=== PATIENT | female | born 1960 | race Caucasian/White ===

== ENCOUNTER 2020-06-14 02:44 | Observation (INO) | payer BC, OTHER ==
[2020-06-14] MEDS ORDERED: hydrALAZINE 25 MG TAB ONE (03:46)
--- NOTE | 2020-06-14 04:17 | PDOC.HHP ---
Hospitalist HPI - History of Present Illness Chest pain History of Present Illness: 59-year-old woman with a history of hypertension and GERD presented to [facility] with a complaint of chest pain of onset 4 days ago. Also the patient the chest pain got worse last night, rated a pain around 8/10 in severity. Chest pain located in the left anterior chest radiating into her shoulder and her arm, associated shortness of breath. According to the patient the chest pain occurred at rest. Initial troponin was negative. EKG demonstrated sinus rhythm with nonspecific ST-T changes. Chest x-ray unremarkable. Patient's cardiac risk factors include smoking, hypertension and family history. She was also severely hypertensive with systolic blood pressure up to 247. She was given sublingual nitroglycerin and aspirin which were patient partially relieved the pain. She was then placed on transdermal nitro which helped improve her blood pressure. Patient is admitted for further management. Hospitalist ROS - Review of Systems Other: Except as documented, all other systems reviewed and negative. - Medication Medications: Amlodipine 10 mg daily Atenolol 25 mg daily Prilosec 40 mg daily Celexa 20 mg daily Requip 0.5 mg daily. Hospitalist History - Past Medical History Cardiac: reports: HTN Gastrointestinal: reports: GERD Psych: reports: Depression - Past Surgical History Past Surgical History: reports: Breast Biopsy, Tubal Ligation - Family History Family History: reports: cardiac disorder (Mother had triple bypass surgery) - Social History Smoking Status: Current every day smoker (Half a pack a day) Alcohol: reports: None Drugs: reports: none - Exam General Appearance: NAD, awake alert Eye: PERRL, anicteric sclera ENT: normocephalic atraumatic, no oropharyngeal lesions, moist mucosa Neck: supple, symmetric, no JVD, no thyromegaly Heart: RRR, no murmur, no gallops, no rubs Respiratory: CTAB, no wheezes, no rales, no ronchi, normal chest expansion Gastrointestinal: soft, non-tender, non-distended, normal bowel sounds Extremities: no cyanosis, no edema Skin: normal turgor, no rashes Neurological: cranial nerve grossly intact, no weakness, no focal deficits Musculoskeletal: normal tone, normal strength Psychiatric: normal affect, normal behavior, A&O x 3 Hospitalist Results - Labs Lab results: Hemoglobin 14.1, platelet 183, WBC 8.7. Sodium 143, potassium 3.8 chloride 105 bicarb 26 BUN 20 creatinine 0.94. Initial troponin is negative. - Radiology Interpretation Chest x-ray Status: report reviewed by me (No acute disease) Hospitalist H&P A/P - Problem (1) Chest pain Code(s): R07.9 - CHEST PAIN, UNSPECIFIED Status: Acute (2) Malignant hypertension Code(s): I10 - ESSENTIAL (PRIMARY) HYPERTENSION Status: Acute - Plan Plan: Placed under observation. Aggressive blood pressure treatment. Continue home antihypertensives-amlodipine and atenolol. Enalapril IV as needed for BP spikes. Nitropaste Aspirin, Lipitor. Continue to trend troponin Obtain echocardiogram. Check lipid profile
[2020-06-14 04:56] LABS: Troponin I Less than 0.010 ng/mL (< 0.028)
[2020-06-14] MEDS ORDERED: Amlodipine 10 MG TAB PO SCH (05:00)
[2020-06-14] MEDS ORDERED: Nitroglycerin 2% Ointment 1 INCH/1 GM Packet TOP SCH (06:00)
[2020-06-14 06:01] VITALS: BMI 33.9
[2020-06-14 07:34] LABS: Troponin I Less than 0.010 ng/mL (< 0.028)
[2020-06-14] MEDS: Aspirin 325 mg Enteric Coated Tablet PO SCH (08:40)
[2020-06-14] MEDS ORDERED: Enoxaparin Sodium 40 MG/0.4 ML SYRINGE SC SCH (09:00)
[2020-06-14] MEDS ORDERED: Labetalol HCl 100 MG/20 ML VIAL SLOW IVP PRN (11:29)
[2020-06-14] MEDS ORDERED: Citalopram 20 MG TAB PO SCH (11:30)
[2020-06-14] MEDS ORDERED: Atenolol 25 MG TAB PO SCH (11:30)
[2020-06-14 11:47] LABS: SARS-CoV-2 MS2 Positive; SARS-CoV-2 N Gene Negative; SARS-CoV-2 S Gene Negative; SARS-CoV-2 by NAA Not Detected (NotDetected); SARS-CoV-2 orf1ab Negative
[2020-06-14] MEDS: rOPINIRole HCl 0.5 MG TAB PO SCH ×2 (15:22→20:33)
[2020-06-14] MEDS: Acetaminophen 325 MG TAB PO PRN ×2 (18:06→20:34)
--- NOTE | 2020-06-14 18:31 | PDOC.EVN ---
Event Note - Event Note Event Note: Patient was seen as a follow-up on 06/14 around 2 PM. Home medications restarted this morning. Continues to have chest discomfort. Echocardiogram results discussed with the patient. Due to persistent chest discomfort patient will undergo a stress test in a.m. Please note that patient was not n.p.o. this morning so the stress test could not be done today.
[2020-06-15 04:13] LABS: #Basophils 0.1 thou/uL (0.0-0.2); #Eosinphils 0.2 thou/uL (0.0-0.7); #Lymphocytes 2.2 thou/uL (1.20-3.40); #Monocytes 0.5 thou/uL (0.11-0.59); #Neutrophils 3.1 thou/uL (1.40-6.50); %Basophils 1.2 % (0.0-1.0); %Eosinophils 3.1 % (0.0-10.0); %Lymphocytes 36.4 % (21.0-51.0); %Monocytes 7.5 % (0.0-10.0); %Neutrophils 51.8 % (42.0-75.0); Mean Corpuscular HGB CONC 33.3 g/dL (32.0-36.0); Mean Corpuscular Hemoglobin 31.5 pg (27.0-31.0); Mean Corpuscular Volume 94.7 fL (78.0-98.0); Mean Platelet Volume 8.7 fL (7.4-10.4); Platelet Count 182 thou/uL (130-400); RBC Distribution Width 11.8 % (11.5-14.5); Red Blood Cell (RBC) Count 4.44 mill/uL (4.20-5.40)
[2020-06-15 04:36] LABS: Anion Gap 10 mmol/L (10-20); BUN (Urea Nitrogen) 16 mg/dL (9.8-20.1); Calc. Creatinine Clearance 82 mL/min (70-130); Calcium 8.8 mg/dL (7.8-10.44); Carbon Dioxide 29 mmol/L (22-29); Cardiac Risk 5.7 (Less than 4.5); Chloride 106 mmol/L (98-107); Cholesterol 245 mg/dl (< 200 Desired); Estimated GFR-MDRD 60; Glucose 106 mg/dL (70-105); HDL Cholesterol 43 mg/dL (>60 Neg Risk); LDL Cholesterol, Calculated 167 mg/dL; Potassium 3.7 mmol/L (3.5-5.1); Sodium 141 mmol/L (136-145); Triglycerides 173 mg/dL (Less than 150)
[2020-06-15] MEDS: Aspirin 325 mg Enteric Coated Tablet PO SCH (08:00)
[2020-06-15] MEDS: Enalaprilat Dihydrate 1.25 MG/ML VIAL SLOW IVP PRN ×2 (08:00→16:00)
[2020-06-15] MEDS ORDERED: Regadenoson 0.4 MG/5 ML SYRINGE ONE (08:50)
[2020-06-15] MEDS: rOPINIRole HCl 0.5 MG TAB PO SCH ×2 (08:59→15:47)
[2020-06-15] MEDS ORDERED: Atenolol 50 MG TAB PO SCH (09:00)
[2020-06-15] MEDS ORDERED: Citalopram 20 MG TAB PO SCH (09:00)
[2020-06-15] MEDS ORDERED: Amlodipine 10 MG TAB PO SCH ×2 (09:00)
[2020-06-15] MEDS: Acetaminophen 325 MG TAB PO PRN (11:07)
--- NOTE | 2020-06-15 13:31 | NM ---
Exam: Nuclear medicine cardiac stress with EF and wall motion HISTORY: Chest pain COMPARISON: 09/10/2004 TECHNIQUE: Patient was ministered 10.10 mm of technetium 99 sestamibi for rest imaging and 33.00 mm o f technetium 99m sestamibi for stress imaging. Cardiac gating is performed. FINDINGS: Homogeneous distribution of the radiotracer in the left ventricle. No reversibility or fixe d defect TID is 1.08 End-diastolic volume is 73 mL End-systolic volume is 21 mL Cardiac gating: Normal wall motion and thickening. 71% ejection fraction IMPRESSION: 1. No reversibility. No fixed defect. 2. 71% ejection fraction.
[2020-06-15 15:48] VITALS: TEMP 98.1
[2020-06-15 16:56] VITALS: BP 141/76
--- NOTE | 2020-06-15 22:37 | DIS ---
DATE OF ADMISSION: 06/14/2020 DATE OF DISCHARGE: 06/15/2020 DISCHARGE DIAGNOSES: 1. Chest pain secondary to #2. 2. Hypertensive urgency, improved. 3. Hyperlipidemia. 4. Gastroesophageal reflux disease. CONSULTATIONS: None. PERTINENT LABORATORY AND X-RAY FINDINGS: Troponin I negative x3. Total cholesterol 245, triglycerides 173, HDL 43, LDL 167. TSH 0.39. CBC within normal limits. COVID-19 PCR not detected, 06/14/2020. Portable chest x-ray dated 06/14/2020, showed no acute cardiopulmonary process. 2D transthoracic echocardiogram dated 06/14/2020, showed ejection fraction of 60% to 65%. Diastolic dysfunction. Cardiolite stress test dated 06/15/2020, showed no evidence of reversible or fixed ischemia with calculated ejection fraction of 71%. HOSPITAL COURSE: The patient was observed on the telemetry unit after initially presenting with chest pain in the context of hypertensive urgency. The patient initially noted with systolic blood pressure in the 247 range, given sublingual nitroglycerin and aspirin. The patient was also restarted on her home blood pressure regimen including amlodipine and atenolol. Serial cardiac biomarkers were obtained and negative as noted previously. The patient proceeded to Cardiolite stress testing showing no evidence of reversible or fixed ischemia with calculated ejection fraction of 71%. Current recommendations are for titration to her current blood pressure regimen with the addition of lisinopril and hydralazine. The patient may need additional titration of her blood pressure regimen on an ongoing basis after discharge. I have examined the patient at the time of discharge and discussed followup instructions. The patient verbalized understanding and agreement, ready for discharge, 06/15/2020. DISCHARGE MEDICATIONS: 1. Lisinopril 10 mg p.o. daily. 2. Hydralazine 25 mg p.o. t.i.d. 3. Atenolol 50 mg p.o. daily. 4. Aspirin 325 mg p.o. daily. 5. Amlodipine 10 mg p.o. daily. 6. Celexa 20 mg p.o. daily. 7. Omeprazole 40 mg p.o. daily. 8. Requip 0.5 mg p.o. t.i.d. FOLLOWUP: The patient may follow up with Dr. Abel Carty within 7 days of discharge. CONDITION ON DISCHARGE: Stable. ACTIVITY: Ad-kelley. DIET: Heart healthy. CODE STATUS: Full. DISPOSITION: To home, 06/15/2020. Job ID: [id number]
== END 2020-06-15 18:00 | disposition home or self-care (01) ==
LOC: ERS 02:44 → 2NO 03:48
PROVIDERS: ADMIT Internal Medicine; ATTEND Internal Medicine
DX: I16.0 Hypertensive urgency (principal); R07.89 Other chest pain; I10 Essential (primary) hypertension; E78.5 Hyperlipidemia, unspecified; K21.9 Gastro-esophageal reflux disease without esophagitis; F32.9 Major depressive disorder, single episode, unspecified; F17.210 Nicotine dependence, cigarettes, uncomplicated; Z79.899 Other long term (current) drug therapy; Z88.2 Allergy status to sulfonamides; Z88.5 Allergy status to narcotic agent; Z20.828 Contact with and (suspected) exposure to other viral communicable diseases
CPT/HCPCS: 36415; 36416; 78452; 80048; 80061; 84443; 85025; 87635; 93017; 93306; 94760; 96372; 96374; 99285; A9500; G0378; J1650; J2785; U0003

== ENCOUNTER 2022-06-03 20:26 | Inpatient (IN) | payer BC ==
[2022-06-03 21:10] LABS: #Eosinphils 0.2 thou/uL (0.0-0.7); #Lymphocytes 1.9 thou/uL (1.20-3.40); #Monocytes 0.6 thou/uL (0.11-0.59); #Neutrophils 6.8 thou/uL (1.40-6.50); %Basophils 0.1 % (0.0-1.0); %Eosinophils 1.6 % (0.0-10.0); %Lymphocytes 20.1 % (21.0-51.0); %Monocytes 5.9 % (0.0-10.0); %Neutrophils 72.3 % (42.0-75.0); Hemoglobin 12.4 g/dL (12.0-16.0); Mean Corpuscular HGB CONC 32.2 g/dL (32.0-36.0); Mean Corpuscular Hemoglobin 31.1 pg (27.0-31.0); Mean Corpuscular Volume 96.9 fL (78.0-98.0); Mean Platelet Volume 8.7 fL (7.4-10.4); Platelet Count 227 thou/uL (130-400); RBC Distribution Width 11.8 % (11.5-14.5); Red Blood Cell (RBC) Count 3.98 mill/uL (4.20-5.40); White Blood Cell (WBC) Count 9.4 thou/uL (4.8-10.8)
[2022-06-03 21:29] LABS: ALT (SGPT) 7 U/L (8-55); AST (SGOT) 11 U/L (5-34); Albumin 3.8 g/dL (3.5-5.0); Alkaline Phosphatase 95 U/L (40-110); Anion Gap 10 mmol/L (10-20); BUN (Urea Nitrogen) 19 mg/dL (9.8-20.1); Bilirubin, Total 0.2 mg/dL (0.2-1.2); Calc. Creatinine Clearance 0 mL/min (70-130); Calcium 9.3 mg/dL (7.8-10.44); Carbon Dioxide 28 mmol/L (22-29); Chloride 108 mmol/L (98-107); Estimated GFR 53; Globulin 2.5 g/dL (2.4-3.5); Glucose 173 mg/dL (70-105); Lipase 27 U/L (8-78); Potassium 3.3 mmol/L (3.5-5.1); Protein, Total 6.3 g/dL (6.0-8.3); Sodium 143 mmol/L (136-145)
[2022-06-03] MEDS ORDERED: Potassium Chloride 20 MEQ TAB ONE (22:10)
[2022-06-03] MEDS ORDERED: Electrolyte Replacement Protocol 1 EACH FS PRN (22:30)
[2022-06-03] MEDS ORDERED: Morphine 4 MG/ML VIAL ONE (22:57)
[2022-06-03 23:08] LABS: Magnesium 1.8 mg/dL (1.6-2.6)
[2022-06-03] MEDS ORDERED: Acetaminophen 650 MG Suppository PR PRN (23:29)
[2022-06-03] MEDS ORDERED: Ondansetron PF 4 MG/2 ML Vial IVP PRN (23:29)
[2022-06-03] MEDS ORDERED: Ondansetron ODT 4 MG TAB PO PRN (23:29)
[2022-06-04 00:06] VITALS: BMI 31.0
[2022-06-04] MEDS: hydrALAZINE 20 MG/ML VIAL SLOW IVP PRN ×3 (00:18→13:40)
[2022-06-04] MEDS ORDERED: Magnesium 2 GM/50 ML(in water) 2 GM in Premix Bag 1 BAG IVPB SCH ×2 (01:15→11:00)
[2022-06-04] MEDS ORDERED: rOPINIRole HCl 0.5 MG TAB PO SCH ×2 (01:30→01:45)
[2022-06-04] MEDS ORDERED: Losartan 25 MG TAB PO SCH (01:45)
[2022-06-04] MEDS ORDERED: cloNIDine 0.3 MG TAB PO SCH (03:00)
[2022-06-04] MEDS: Acetaminophen 325 MG TAB PO PRN (03:22)
[2022-06-04 05:01] LABS: #Eosinphils 0.2 thou/uL (0.0-0.7); #Monocytes 0.6 thou/uL (0.11-0.59); #Neutrophils 5.5 thou/uL (1.40-6.50); %Basophils 0.2 % (0.0-1.0); %Lymphocytes 23.8 % (21.0-51.0); %Monocytes 7.5 % (0.0-10.0); %Neutrophils 66.4 % (42.0-75.0); Hemoglobin 12.2 g/dL (12.0-16.0); Mean Corpuscular HGB CONC 32.5 g/dL (32.0-36.0); Mean Corpuscular Hemoglobin 31.5 pg (27.0-31.0); Mean Platelet Volume 8.5 fL (7.4-10.4); Platelet Count 219 thou/uL (130-400); RBC Distribution Width 11.8 % (11.5-14.5); Red Blood Cell (RBC) Count 3.88 mill/uL (4.20-5.40); White Blood Cell (WBC) Count 8.3 thou/uL (4.8-10.8)
[2022-06-04 05:10] LABS: Hemoglobin A1c 6.1 % (4.0-6.0)
[2022-06-04 05:18] LABS: Anion Gap 11 mmol/L (10-20); BUN (Urea Nitrogen) 17 mg/dL (9.8-20.1); Calc. Creatinine Clearance 86 mL/min (70-130); Calcium 8.8 mg/dL (7.8-10.44); Carbon Dioxide 24 mmol/L (22-29); Chloride 108 mmol/L (98-107); Estimated GFR 78; Glucose 140 mg/dL (70-105); Potassium 3.4 mmol/L (3.5-5.1); Sodium 140 mmol/L (136-145)
[2022-06-04] MEDS ORDERED: Sodium Chloride 0.9% 500 ML IVPB SCH (06:00)
[2022-06-04] MEDS ORDERED: Potassium Chloride 20 MEQ TAB PO SCH ×2 (09:00→15:00)
[2022-06-04] MEDS ORDERED: Enoxaparin Sodium 40 MG/0.4 ML SYRINGE SC SCH (09:00)
[2022-06-04] MEDS: rOPINIRole HCl 0.5 MG TAB PO SCH ×3 (10:31→21:53)
[2022-06-04] MEDS ORDERED: Aspirin Chewable 81 MG TAB PO SCH (14:00)
[2022-06-04] MEDS ORDERED: Nitroglycerin 2% Ointment 1 INCH/1 GM Packet TOP SCH (14:00)
[2022-06-04 14:52] LABS: Potassium 3.8 mmol/L (3.5-5.1)
[2022-06-04] MEDS ORDERED: NIFEdipine XL 60 MG TAB PO SCH (15:15)
[2022-06-04] MEDS: methylPREDNISolone Sod Succ 40 MG VIAL IVP SCH (18:15)
[2022-06-04] MEDS ORDERED: Enoxaparin Sodium 60 MG/0.6 ML SYRINGE SC SCH (21:00)
[2022-06-04] MEDS: Rosuvastatin 20 MG TAB PO SCH (21:53)
[2022-06-04] MEDS: Losartan 25 MG TAB PO SCH (21:53)
[2022-06-04] MEDS: Nitroglycerin 2% Ointment 1 INCH/1 GM Packet TOP SCH (21:55)
[2022-06-05] MEDS: methylPREDNISolone Sod Succ 40 MG VIAL IVP SCH ×3 (02:19→17:25)
[2022-06-05] MEDS ORDERED: Sodium Chloride 0.9% 1,000 ML IV SCH (06:00)
[2022-06-05] MEDS: rOPINIRole HCl 0.5 MG TAB PO SCH ×3 (06:06→20:53)
[2022-06-05] MEDS: NIFEdipine XL 60 MG TAB PO SCH (06:06)
[2022-06-05] MEDS ORDERED: Lidocaine 1% 50ML VIAL ONE (06:45)
[2022-06-05] MEDS ORDERED: Heparin 10,000 UNITS/ 10 ML VIAL ONE ×2 (06:55→09:26)
[2022-06-05 07:08] LABS: #Lymphocytes 0.7 thou/uL (1.20-3.40); #Monocytes 0.1 thou/uL (0.11-0.59); #Neutrophils 9.1 thou/uL (1.40-6.50); %Eosinophils 0.1 % (0.0-10.0); %Lymphocytes 7.2 % (21.0-51.0); %Monocytes 0.7 % (0.0-10.0); %Neutrophils 91.9 % (42.0-75.0); Hemoglobin 13.7 g/dL (12.0-16.0); Mean Corpuscular HGB CONC 33.3 g/dL (32.0-36.0); Mean Corpuscular Hemoglobin 31.8 pg (27.0-31.0); Mean Corpuscular Volume 95.5 fL (78.0-98.0); Mean Platelet Volume 8.8 fL (7.4-10.4); Platelet Count 237 thou/uL (130-400); RBC Distribution Width 11.7 % (11.5-14.5); White Blood Cell (WBC) Count 9.9 thou/uL (4.8-10.8)
[2022-06-05 07:45] LABS: Anion Gap 13 mmol/L (10-20); BUN (Urea Nitrogen) 24 mg/dL (9.8-20.1); Calc. Creatinine Clearance 64 mL/min (70-130); Calcium 9.6 mg/dL (7.8-10.44); Carbon Dioxide 22 mmol/L (22-29); Cardiac Risk 4.4 (Less than 4.5); Chloride 108 mmol/L (98-107); Cholesterol 230 mg/dl (< 200 Desired); Estimated GFR 55; Glucose 217 mg/dL (70-105); HDL Cholesterol 52 mg/dL (>60 Neg Risk); LDL Cholesterol, Calculated 150 mg/dL; Magnesium 2.3 mg/dL (1.6-2.6); Potassium 4.4 mmol/L (3.5-5.1); Sodium 139 mmol/L (136-145); Triglycerides 139 mg/dL (Less than 150)
[2022-06-05] MEDS: Communication Order-Pharmacy FS SCH ×2 (08:16→21:21)
[2022-06-05] MEDS: Nitroglycerin 2% Ointment 1 INCH/1 GM Packet TOP SCH ×2 (08:23→21:05)
[2022-06-05] MEDS ORDERED: Aspirin Chewable 81 MG TAB PO SCH ×3 (09:00→09:30)
[2022-06-05] MEDS ORDERED: Enoxaparin Sodium 80 MG/0.8 ML SYRINGE SC SCH ×3 (09:18→21:00)
[2022-06-05] MEDS ORDERED: Dextrose 5% in Water 1,000 ML IV PRN (16:34)
[2022-06-05] MEDS ORDERED: HumaLOG 300 UNITS/3 ML VIAL SC PRN ×2 (16:34)
[2022-06-05] MEDS ORDERED: Dextrose 50% Abboject 50 ML SYRINGE SLOW IVP PRN (16:34)
[2022-06-05] MEDS: Losartan 25 MG TAB PO SCH (20:51)
[2022-06-05] MEDS: Rosuvastatin 20 MG TAB PO SCH (20:53)
[2022-06-05] MEDS: Acetaminophen 325 MG TAB PO PRN (20:53)
[2022-06-06] MEDS: methylPREDNISolone Sod Succ 40 MG VIAL IVP SCH (02:40)
[2022-06-06 05:11] LABS: #Lymphocytes 0.8 thou/uL (1.20-3.40); #Monocytes 0.5 thou/uL (0.11-0.59); #Neutrophils 15.1 thou/uL (1.40-6.50); %Basophils 0.1 % (0.0-1.0); %Eosinophils 0.1 % (0.0-10.0); %Lymphocytes 4.7 % (21.0-51.0); %Monocytes 2.8 % (0.0-10.0); %Neutrophils 92.4 % (42.0-75.0); Hemoglobin 13.2 g/dL (12.0-16.0); Mean Corpuscular HGB CONC 32.5 g/dL (32.0-36.0); Mean Corpuscular Hemoglobin 31.4 pg (27.0-31.0); Mean Corpuscular Volume 96.4 fL (78.0-98.0); Mean Platelet Volume 9.3 fL (7.4-10.4); Platelet Count 238 thou/uL (130-400); RBC Distribution Width 11.7 % (11.5-14.5); Red Blood Cell (RBC) Count 4.22 mill/uL (4.20-5.40); White Blood Cell (WBC) Count 16.3 thou/uL (4.8-10.8)
[2022-06-06 05:16] LABS: Anion Gap 14 mmol/L (10-20); BUN (Urea Nitrogen) 30 mg/dL (9.8-20.1); Calc. Creatinine Clearance 69 mL/min (70-130); Calcium 9.5 mg/dL (7.8-10.44); Carbon Dioxide 22 mmol/L (22-29); Chloride 108 mmol/L (98-107); Estimated GFR 60; Glucose 205 mg/dL (70-105); Potassium 4.1 mmol/L (3.5-5.1); Sodium 140 mmol/L (136-145)
[2022-06-06] MEDS: Sodium Chloride 0.9% 1,000 ML IV SCH (05:40)
[2022-06-06] MEDS: NIFEdipine XL 60 MG TAB PO SCH (05:53)
[2022-06-06] MEDS: Aspirin Chewable 81 MG TAB PO SCH (05:53)
[2022-06-06] MEDS: rOPINIRole HCl 0.5 MG TAB PO SCH ×3 (05:56→21:39)
[2022-06-06] MEDS ORDERED: Magnesium 2 GM/50 ML(in water) 2 GM in Premix Bag 1 BAG IVPB SCH (08:00)
[2022-06-06] MEDS ORDERED: Lidocaine 1% PF 5 ML VIAL ONE (08:10)
[2022-06-06] MEDS: Nitroglycerin 2% Ointment 1 INCH/1 GM Packet TOP SCH ×2 (08:12→21:40)
[2022-06-06] MEDS ORDERED: Fentanyl 100 MCG/2 ML VIAL ONE (08:31)
[2022-06-06] MEDS ORDERED: Midazolam HCl 2 mg/2 ml Vial ONE (08:31)
[2022-06-06] MEDS ORDERED: Heparin 10,000 UNITS/ 10 ML VIAL ONE ×3 (08:36→10:29)
[2022-06-06] MEDS ORDERED: Nitroglycerin 100MG/250ML BOT 250 ML ONE (09:31)
[2022-06-06] MEDS ORDERED: Clopidogrel Bisulfate 300 MG TAB ONE (09:57)
[2022-06-06] MEDS ORDERED: Clopidogrel Bisulfate 300 MG TAB PO SCH (10:45)
[2022-06-06] MEDS ORDERED: Acetaminophen 325 MG TAB ONE (12:13)
[2022-06-06] MEDS: Acetaminophen 325 MG TAB PO PRN (12:19)
[2022-06-06] MEDS ORDERED: Iopamidol 370 76% 100 ML VIAL ONE (14:53)
[2022-06-06] MEDS ORDERED: Iopamidol 370 76% 50 ML VIAL FS ONE (14:53)
[2022-06-06] MEDS: Rosuvastatin 20 MG TAB PO SCH (21:39)
[2022-06-06] MEDS: Losartan 25 MG TAB PO SCH (21:39)
[2022-06-07 05:17] LABS: #Lymphocytes 2.6 thou/uL (1.20-3.40); #Monocytes 0.7 thou/uL (0.11-0.59); %Basophils 0.4 % (0.0-1.0); %Eosinophils 0.2 % (0.0-10.0); %Lymphocytes 24.8 % (21.0-51.0); %Monocytes 6.8 % (0.0-10.0); %Neutrophils 67.7 % (42.0-75.0); Hemoglobin 12.6 g/dL (12.0-16.0); Mean Corpuscular HGB CONC 32.3 g/dL (32.0-36.0); Mean Corpuscular Hemoglobin 31.3 pg (27.0-31.0); Mean Platelet Volume 8.9 fL (7.4-10.4); Platelet Count 228 thou/uL (130-400); RBC Distribution Width 11.9 % (11.5-14.5); Red Blood Cell (RBC) Count 4.01 mill/uL (4.20-5.40); White Blood Cell (WBC) Count 10.4 thou/uL (4.8-10.8)
[2022-06-07 05:35] LABS: ALT (SGPT) 9 U/L (8-55); AST (SGOT) 21 U/L (5-34); Albumin 3.4 g/dL (3.5-5.0); Alkaline Phosphatase 69 U/L (40-110); Anion Gap 13 mmol/L (10-20); BUN (Urea Nitrogen) 25 mg/dL (9.8-20.1); Bilirubin, Total 0.3 mg/dL (0.2-1.2); Calc. Creatinine Clearance 68 mL/min (70-130); Calcium 8.8 mg/dL (7.8-10.44); Carbon Dioxide 24 mmol/L (22-29); Chloride 110 mmol/L (98-107); Estimated GFR 59; Glucose 115 mg/dL (70-105); Potassium 4.1 mmol/L (3.5-5.1); Protein, Total 6.4 g/dL (6.0-8.3); Sodium 143 mmol/L (136-145)
[2022-06-07] MEDS ORDERED: Magnesium 2 GM/50 ML(in water) 2 GM in Premix Bag 1 BAG IVPB SCH (08:00)
[2022-06-07] MEDS: Aspirin Chewable 81 MG TAB PO SCH (08:40)
[2022-06-07] MEDS: NIFEdipine XL 60 MG TAB PO SCH (08:40)
[2022-06-07] MEDS: rOPINIRole HCl 0.5 MG TAB PO SCH (08:40)
[2022-06-07] MEDS ORDERED: Ezetimibe 10 MG TAB PO SCH (09:00)
[2022-06-07] MEDS ORDERED: Clopidogrel Bisulfate 75 MG TAB PO SCH (09:00)
[2022-06-07 11:43] VITALS: BP 145/67; TEMP 98.5
[2022-06-07] MEDS: Sodium Chloride 0.9% 1,000 ML IV SCH (12:26)
== END 2022-06-07 13:15 | disposition home or self-care (01) | DRG 247 ==
LOC: ERS 20:26 → 2SW 22:26 → OBSVTOIN 06-04 11:05
PROVIDERS: ADMIT Internal Medicine; ATTEND Internal Medicine
PROC: 027034Z Dilation of Coronary Artery, One Artery with Drug-eluting Intraluminal Device, Percutaneous Approach (ICD-10-PCS; principal; 2022-06-04)
PROC: 4A023N7 Measurement of Cardiac Sampling and Pressure, Left Heart, Percutaneous Approach (ICD-10-PCS; 2022-06-04)
PROC: B2141ZZ Fluoroscopy of Right Heart using Low Osmolar Contrast (ICD-10-PCS; 2022-06-04)
PROC: B2111ZZ Fluoroscopy of Multiple Coronary Arteries using Low Osmolar Contrast (ICD-10-PCS; 2022-06-04)
DX: I44.2 Atrioventricular block, complete (principal); L76.32 Postprocedural hematoma of skin and subcutaneous tissue following other procedure; Z20.822 Contact with and (suspected) exposure to COVID-19; I16.0 Hypertensive urgency; R73.03 Prediabetes; I25.10 Atherosclerotic heart disease of native coronary artery without angina pectoris; F32.A Depression, unspecified; K21.9 Gastro-esophageal reflux disease without esophagitis; I10 Essential (primary) hypertension; F17.210 Nicotine dependence, cigarettes, uncomplicated; E87.6 Hypokalemia; E78.00 Pure hypercholesterolemia, unspecified; J44.9 Chronic obstructive pulmonary disease, unspecified; M10.9 Gout, unspecified; J98.01 Acute bronchospasm; Y84.0 Cardiac catheterization as the cause of abnormal reaction of the patient, or of later complication, without mention of misadventure at the time of the procedure; Z88.5 Allergy status to narcotic agent; Z79.899 Other long term (current) drug therapy; Z88.2 Allergy status to sulfonamides; Z98.51 Tubal ligation status
CPT/HCPCS: 36415; 36416; 70450; 70551; 71045; 76936; 80048; 80053; 80061; 83036; 83690; 83735; 83880; 84484; 85025; 85347; 92928; 93005; 93010; 93306; 93458; 93798; 94640; 96372; 96374; 96375; 99152; 99153; C1769; C1874; C1887; C9600; G0378; J0360; J1644; J1650; J1815; J2250; J2270; J2920; J3010; J3475; J3490; J7030; J7050; J7620; Q9967; U0003; U0005

== ENCOUNTER 2023-05-06 19:42 | Observation (INO) | payer BC ==
[2023-05-06] MEDS ORDERED: hydrALAZINE 20 MG/ML VIAL SLOW IVP PRN (21:24)
[2023-05-06] MEDS ORDERED: Ipratropium/Albuterol 3 ML NEB NEB PRN (21:25)
[2023-05-06] MEDS ORDERED: Ondansetron ODT 4 MG TAB PO PRN (21:26)
[2023-05-06] MEDS ORDERED: Acetaminophen 650 MG Suppository PR PRN (21:26)
[2023-05-06] MEDS ORDERED: Nitroglycerin 0.4 MG TAB (25 Tab Bottle) SL PRN (21:26)
[2023-05-06] MEDS ORDERED: Acetaminophen 325 MG TAB PO PRN (21:26)
[2023-05-06] MEDS ORDERED: Ondansetron PF 4 MG/2 ML Vial IVP PRN (21:26)
[2023-05-06] MEDS ORDERED: HumaLOG 300 UNITS/3 ML VIAL SC PRN ×2 (21:38)
[2023-05-06] MEDS ORDERED: Glucagon 1 MG/ML KIT IM PRN (21:38)
[2023-05-06] MEDS ORDERED: Dextrose 5% in Water 1,000 ML IV PRN (21:38)
[2023-05-06] MEDS ORDERED: Dextrose 50% Abboject 50 ML SYRINGE SLOW IVP PRN (21:38)
[2023-05-06] MEDS ORDERED: Potassium Chloride 20 MEQ TAB PO SCH (21:45)
[2023-05-06] MEDS ORDERED: Heparin 25,000 units/D5W 500 ML IVPB SCH (21:45)
[2023-05-06] MEDS ORDERED: Heparin 10,000 UNITS/ 10 ML VIAL SLOW IVP SCH (21:45)
[2023-05-06 21:53] LABS: Hematocrit 38.8 % (36.0-47.0); Hemoglobin 12.9 g/dL (12.0-16.0); Platelet Count 208 10x3/uL (130-400)
[2023-05-06] MEDS: Ipratropium/Albuterol 3 ML NEB NEB SCH (22:16)
[2023-05-06 22:19] LABS: Troponin I Less than 0.010 ng/mL (< 0.028)
[2023-05-07] MEDS: Ipratropium/Albuterol 3 ML NEB NEB SCH ×2 (02:26→07:32)
[2023-05-07 03:58] LABS: #Basophils 0.1 thou/uL (0.0-0.2); #Eosinphils 0.3 thou/uL (0.0-0.7); #Monocytes 0.6 thou/uL (0.11-0.59); #Neutrophils 4.6 thou/uL (1.40-6.50); %Basophils 0.9 % (0.0-1.0); %Eosinophils 4.1 % (0.0-10.0); %Lymphocytes 28.2 % (21.0-51.0); %Monocytes 7.7 % (0.0-10.0); %Neutrophils 58.8 % (42.0-75.0); Hemoglobin 13.1 g/dL (12.0-16.0); Mean Corpuscular HGB CONC 33.6 g/dL (32.0-36.0); Mean Corpuscular Hemoglobin 31.2 pg (27.0-31.0); Mean Corpuscular Volume 92.9 fl (78.0-98.0); Platelet Count 197 10x3/uL (130-400); RBC Distribution Width 12.2 % (11.5-14.5); White Blood Cell (WBC) Count 7.8 10x3/uL (4.8-10.8)
[2023-05-07 04:20] LABS: Anion Gap 9 mmol/L (10-20); BUN (Urea Nitrogen) 14 mg/dL (9.8-20.1); Calc. Creatinine Clearance 85 mL/min (70-130); Calcium 8.7 mg/dL (7.8-10.44); Carbon Dioxide 25 mmol/L (23-31); Chloride 111 mmol/L (98-107); Estimated GFR 88; Glucose 111 mg/dL (80-115); Potassium 3.4 mmol/L (3.5-5.1); Sodium 142 mmol/L (136-145)
[2023-05-07 04:25] LABS: Troponin I Less than 0.010 ng/mL (< 0.028)
[2023-05-07] MEDS ORDERED: Aspirin Chewable 81 MG TAB PO SCH (09:00)
[2023-05-07] MEDS ORDERED: Amlodipine 10 MG TAB PO SCH (09:00)
[2023-05-07] MEDS: rOPINIRole HCl 0.5 MG TAB PO SCH ×3 (10:26→22:21)
[2023-05-07] MEDS ORDERED: NIFEdipine XL 60 MG TAB PO SCH (13:45)
[2023-05-07] MEDS ORDERED: Potassium Chloride 20 MEQ TAB PO SCH (15:00)
[2023-05-07] MEDS ORDERED: metFORMIN XR 500 MG TAB PO SCH (18:00)
[2023-05-07] MEDS ORDERED: Rosuvastatin 20 MG TAB PO SCH (21:00)
[2023-05-07] MEDS ORDERED: Losartan 25 MG TAB PO SCH (21:00)
[2023-05-08 08:27] VITALS: BP 122/72; TEMP 97.6
[2023-05-08] MEDS ORDERED: NIFEdipine XL 60 MG TAB PO SCH (09:00)
[2023-05-08] MEDS ORDERED: Aspirin Chewable 81 MG TAB PO SCH (09:00)
[2023-05-08] MEDS ORDERED: Clopidogrel Bisulfate 75 MG TAB PO SCH (09:00)
== END 2023-05-08 09:14 | disposition home or self-care (01) ==
LOC: INTOOBSV 20:44 → 2SW 20:44
PROVIDERS: ADMIT Student in an Organized Health Care Education/Training Program; ATTEND Internal Medicine
DX: R07.9 Chest pain, unspecified (principal); R07.89 Other chest pain; E11.9 Type 2 diabetes mellitus without complications; I10 Essential (primary) hypertension; I25.118 Atherosclerotic heart disease of native coronary artery with other forms of angina pectoris; J44.9 Chronic obstructive pulmonary disease, unspecified; E78.5 Hyperlipidemia, unspecified; Z79.82 Long term (current) use of aspirin; Z95.5 Presence of coronary angioplasty implant and graft; Z88.1 Allergy status to other antibiotic agents; Z88.5 Allergy status to narcotic agent; Z87.891 Personal history of nicotine dependence; Z79.84 Long term (current) use of oral hypoglycemic drugs; Z79.02 Long term (current) use of antithrombotics/antiplatelets; Z79.899 Other long term (current) drug therapy
CPT/HCPCS: 36415; 36416; 80048; 84484; 85025; 85730; 94640; 96374; G0378; J1644; J7620